=== PATIENT | male | born 1960 | race Caucasian/White ===

== ENCOUNTER 2017-02-20 12:49 | Day surgery (SDC) | payer OTHER ==
[~2017-02-20] VITALS: Ht 182.9 cm; Wt 91.8 kg
[2017-02-20] MEDS ORDERED: HYDROCODONE-APA1 TAB PO (13:53)
[2017-02-20] MEDS ORDERED: KLONOPIN1 MG PO (13:54)
[2017-02-20 14:00] VITALS: BP 105/72; Ht 182.9 cm; Wt 91.8 kg
== END 2017-02-20 17:45 | disposition home or self-care (01) ==
LOC: D.OPS 12:49
DX: Z86.010 Personal history of colon polyps (principal); D12.4 Benign neoplasm of descending colon; D12.3 Benign neoplasm of transverse colon; K62.1 Rectal polyp; K64.8 Other hemorrhoids; F17.200 Nicotine dependence, unspecified, uncomplicated; G47.30 Sleep apnea, unspecified; Z01.812 Encounter for preprocedural laboratory examination